=== PATIENT | female | born 1990 | race Caucasian/White ===

== ENCOUNTER 2024-01-09 18:48 | Emergency (ER) | payer OTHER, SELFPAY ==
--- NOTE | 2024-01-09 18:53 | ED.URI ---
HPI - URI/Sore Throat General Chief Complaint: Urogenital-Female Stated Complaint: Uti Symptoms/Sore Throat Time Seen by Provider: 01/09/24 19:25 Source: patient Mode of arrival: ambulatory Limitations: no limitations History of Present Illness HPI Narrative: Stephani is a 33-year-old female patient presenting to the clinic today with complaints of a possible urinary tract infection. She reports over the weekend she started having some burning and frequency with urination has been trying to flush her kidneys with water and cranberry juice. Also reports that she developed a sore throat and nasal congestion yesterday and her son is being seen for sore throat today in the clinic. She denies any fever, chills, body aches, abdominal pain, or back pain. MD elicited complaint: sore throat, nasal congestion and other (UTI symptoms) Review of Systems Review of Systems: Pertinent positives per HPI. Patient denies any fever, chills, rash, headache, visual changes, dizziness, cough, shortness of breath, chest pain, palpitations, nausea, vomiting, diarrhea, constipation, abdominal pain. PMFSH Comments At the time of my signature, I reviewed and agree with the nursing past medical, surgical, social, and family history. There is no relevant family history pertinent to the patient complaint. Exam Narrative: General: Well-developed, well nourished, in no apparent distress Head: Normocephalic, atraumatic Eyes: Pupils equally round and reactive to light bilaterally, EOM intact, sclera and conjunctive clear, no discharge, lids normal Ears: TMs intact and congested, ear canals clear, no drainage, grossly hearing normal. Nose: Nares patent, clear discharge, no inflammation, no sinus tenderness. Mouth: Oral pharynx red without lesions or masses, good dentition, MMM. Neck: Supple, trachea midline, no enlargement of anterior or posterior cervical nodes, no thyroid masses or goiter palpable. Cardio: Regular rate and rhythm, s1 and s2 normal, no murmur appreciated. Resp: Clear to auscultation bilaterally, no rhonchi, rales, wheezing or rubs Abdomen: Soft, pliable, bowel sounds present all 4 quadrants, nontender to palpation, no organomegaly, no CVAT tenderness Course Course Emergency Course: Portions of this record may have been created with voice recognition software. Level of Care: Express Care Visit Vital Signs Vital signs: Vital Signs Temperature 36.4 C 01/09/24 19:19 Pulse Rate 91 01/09/24 19:19 Respiratory Rate 15 01/09/24 19:19 Blood Pressure 102/69 01/09/24 19:19 Pulse Oximetry 97 01/09/24 19:19 Oxygen Delivery Room Air 01/09/24 19:19 Temperature 36.4 C 01/09/24 19:19 Pulse Rate 91 01/09/24 19:19 Respiratory Rate 15 01/09/24 19:19 Blood Pressure 102/69 01/09/24 19:19 Pulse Oximetry 97 01/09/24 19:19 Oxygen Delivery Room Air 01/09/24 19:19 Vital signs reviewed MDM - URI/Sore Throat MDM Narrative Medical decision making narrative: At the time of visit patient is resting comfortably on the exam table. Patient appears to be nontoxic. Labs: Urinalysis positive for nitrates, leukocytes, blood, and protein. Strep test was negative in the clinic today. We will send urine and strep for culture. Plan: I suspect patient has UTI with viral pharyngitis. Prescription for Augmentin was sent to the pharmacy. Supportive measures were discussed with the patient and they voiced understanding discharge instructions and agrees to treatment plan. Return precautions reviewed Differential Diagnosis Differential diagnosis: Likely upper respiratory infection, otitis media, sinusitis, viral infection, bronchitis, influenza, pharyngitis and other (COVID, UTI) Lab Data Labs: Lab Results 01/09/24 Range/Units 19:19 POC Urine Color Yellow POC Urine Clarity Clear POC Urine pH 6.0 POC Ur Specif [place] 1.030 POC Urine Protein Trace POC Ur Glucose (UA) Negative PO
[2024-01-09 19:19] VITALS: BP 102/69; PULSE 91; RESP 15; TEMP 36.4; O2SAT 97
[2024-01-09 19:20] LABS: EDUAAPPEAR Clear; EDUABILI Negative; EDUABLOOD Trace; EDUACOLOR1 Yellow; EDUAGLUCOSE Negative; EDUAKETONE Negative; EDUALEUKO Trace; EDUANITRATE Positive; EDUAPROTEIN Trace; EDUAUROBILI 0.2
[2024-01-11 16:32] LABS: EDSTREPNEGPOS1 Negative
== END 2024-01-09 19:29 | disposition home or self-care (01) ==
PROVIDERS: Emergency Provider Nurse Practitioner Family
DX: N39.0 Urinary tract infection, site not specified (principal); J02.9 Acute pharyngitis, unspecified
CPT/HCPCS: 81003; 87077; 87081; 87086; 87088; 87186; 87880; 99213; G0463